=== PATIENT | female | born 1950 | race Caucasian/White ===

== ENCOUNTER 2021-01-10 14:58 | Emergency (ER) | payer MEDICARE, OTHER ==
--- NOTE | 2021-01-10 15:59 | EDM.PDOC ---
<Jesus Haque - Last Filed: 01/10/21 19:22> ED HPI GENERAL MEDICAL PROBLEM - General Chief Complaint: General Stated Complaint: POSS LOW POTASSIUM Time Seen by Provider: 01/10/21 15:27 - History of Present Illness INITIAL COMMENTS - FREE TEXT/NARRATIVE: 70-year-old female presents the emergency room after being sent here by her outpatient clinic as her potassium is quite low was 2.6. Patient has some fatigue and is tired but denies any heart problems or palpitations. She is however treated for hypertension hyperlipidemia. She is also treated for depression. She is on lisinopril hydrochlorothiazide for blood pressure and this was recently increased to a whole pill according to the patient she is on Lipitor for cholesterol. Patient is a breast cancer survivor she had a lumpectomy in the right. Is unclear to me what other treatment she had for this but it was 20 years ago. Patient has a unfortunate social circumstance she lost her 7 years ago and has been dating some folks that her suspicious for taking some of her financial resources. Early in the patient's care we had Mickie from social work come by and evaluate this patient and she spent about an hour and a half with the patient. And Mickie put some plans together that included following up with her psychologist weekly at least preferably twice a week the patient agrees to stop giving financial resources out. She is getting continue attending grief support group and the patient will return to the muslim community and visit the medical research associate for more social support. - Related Data Allergies Allergy/AdvReac Type Severity Reaction Status Date / Time haloperidol [From Haldol] Allergy Cannot Verified 01/10/21 15:21 Remember house dust mite Allergy Itching Verified 01/10/21 18:54 mold Allergy Itching Verified 01/10/21 18:53 zolpidem [From Ambien] Allergy Hallucinati Verified 01/10/21 18:53 ons Home Meds: Home Meds Amitriptyline [Elavil] 10 mg PO BEDTIME 01/11/21 [History] Aspirin [Halfprin] 81 mg PO DAILY 01/11/21 [History] Cyclobenzaprine [Flexeril] 5 mg PO TID PRN 01/11/21 [History] Doxycycline [Vibramycin] 100 mg PO BID 01/11/21 [History] Hydrochlorothiazide/Lisinopril [Lisinopril/HCTZ 10-12.5 MG] 10 - 12.5 mg PO DAILY 01/11/21 [History] Pantoprazole [ProTONIX] 40 mg PO DAILY 01/11/21 [History] Venlafaxine [Effexor XR] 150 mg PO DAILY 01/11/21 [History] atorvaSTATin [Lipitor] 40 mg PO BEDTIME 01/11/21 [History] buPROPion HCL [Bupropion Xl] 150 mg PO DAILY 01/11/21 [History] Past Medical History - Past Health History Medical/Surgical History: Denies Medical/Surgical History Social & Family History - Tobacco Use Tobacco Use Status *Q: Never Tobacco User - Recreational Drug Use Recreational Drug Use: No ED ROS GENERAL - Review of Systems Review Of Systems: See Below Constitutional: Reports: No Symptoms HEENT: Reports: No Symptoms Respiratory: Reports: No Symptoms Cardiovascular: Reports: No Symptoms Endocrine: Reports: No Symptoms GI/Abdominal: Reports: No Symptoms : Reports: No Symptoms Musculoskeletal: Reports: No Symptoms Skin: Reports: No Symptoms ED EXAM, GENERAL - Physical Exam Exam: See Below Exam Limited By: Other (Patient answers questions but she is a little slow to do this so.) General Appearance: Alert, No Apparent Distress Eye Exam: Bilateral Eye: EOMI, Normal Inspection, PERRL Ears: Normal External Exam, Normal Canal, Hearing Grossly Normal, Normal TMs Nose: Normal Inspection, Normal Mucosa, No Blood Throat/Mouth: Normal Inspection, Normal Lips, Normal Gums, Normal Oropharynx, Normal Voice, No Airway Compromise Head: Atraumatic, Normocephalic Neck: Normal Inspection, Supple, Non-Tender, Full Range of Motion Respiratory/Chest: No Respiratory Distress, Lungs Clear, Normal Breath Sounds Cardiovascular: Regular Rate, Rhythm, No Edema, No Murmur GI/Abdominal: Normal Bowel Sounds, Soft, Non-Tender Neurological: Alert, Other (Patient is slow to respond but does answer questions) Psychiatric: Flat Affect Course - Re-Assessments/Exams Free Text/Narrative Re-Assessment/Exam: 01/10/21 18:29 There are some complicating social factors with this patient and it was late for me getting started with her because social work did come by and review the situation and spent quite a long time with the patient. At this point we have started IV potassium I am waiting to give oral until I get confirmatory lab results. And then we will give 40 mEq p.o. then after she received 40 IV she should be okay to go home and finish oral supplementation as an outpatient we will check a repeat potassium during her fourth bag this will be approximately 9 PM this evening. At this point is change of shift further care and disposition per Dr. Da Silva Departure - Departure Disposition: Home, Self-Care 01 Clinical Impression: Hypokalemia - Discharge Information Referrals: Stephanie Leslie MD [Ordering Only Provider] - Forms: ED Department Discharge Additional Instructions: You were seen in the emergency room after being sent over from the clinic for low potassium. Work-up in the ER included some blood work and a urinalysis. The blood work confirmed your potassium level to be severely depressed at 2.3. Your urinalysis was unremarkable - you do not have a urinary tract infection. You were given multiple doses of oral and IV potassium replacement in the ER. We recommend that you contact the office of your PCP, Dr. Stephanie Leslie, today, in order to make an appointment to be seen this coming , 01/13/2021. At that time, your electrolytes should be rechecked. If any other problems, please do not hesitate to return to the ER. Sepsis Event Note (ED) - Evaluation Sepsis Screening Result: No Definite Risk <Ok Da Silva - Last Filed: 01/11/21 09:02> Course - Vital Signs Last Recorded V/S: Last Vital Signs Temp 36.9 C 01/11/21 07:46 Pulse 72 01/11/21 07:46 Resp 14 01/11/21 07:46 BP 152/82 H 01/11/21 07:46 Pulse Ox 94 L 01/11/21 07:46 - Orders/Labs/Meds Labs: Laboratory Tests 01/10/21 01/10/21 01/10/21 Range/Units 17:19 17:25 20:50 Sodium 137 (136-145) mEq/L Potassium 2.3 L* 2.4 L* (3.5-5.1) mEq/L Chloride 93 L (98-107) mEq/L Carbon Dioxide 33 H (21-32) mEq/L Anion Gap 13.3 (5-15) BUN 7 (7-18) mg/dL Creatinine 0.8 (0.55-1.02) mg/dL Est Cr Clr Drug Dosing 58.12 mL/min Estimated GFR (MDRD) > 60 (>60) mL/min BUN/Creatinine Ratio 8.8 L (14-18) Glucose 91 (70-99) mg/dL Calcium 9.3 (8.5-10.1) mg/dL Magnesium 1.8 (1.8-2.4) mg/dL Urine Color Yellow (Yellow) Urine Appearance Clear (Clear) Urine pH 7.0 (5.0-8.0) Ur Specific [place] 1.015 (1.005-1.030) Urine Protein Negative (Negative) Urine Glucose (UA) Negative (Negative) Urine Ketones Negative (Negative) Urine Occult Blood Trace-intact H (Negative) Urine Nitrite Negative (Negative) Urine Bilirubin Negative (Negative) Urine Urobilinogen 0.2 (0.2-1.0) Ur Leukocyte Esterase Trace H (Negative) Urine RBC 0-5 (0-5) /hpf Urine WBC 0-5 (0-5) /hpf Ur Squamous Epith Cells 5-10 H (0-5) /hpf Urine Bacteria Few (FEW) /hpf Urine Mucus Not seen (FEW) /hpf 01/11/21 Range/Units 03:34 Sodium 140 (136-145) mEq/L Potassium 3.1 L (3.5-5.1) mEq/L Chloride 101 (98-107) mEq/L Carbon Dioxide 31 (21-32) mEq/L Anion Gap 11.1 (5-15) BUN 6 L (7-18) mg/dL Creatinine 0.9 (0.55-1.02) mg/dL Est Cr Clr Drug Dosing 51.66 mL/min Estimated GFR (MDRD) > 60 (>60) mL/min BUN/Creatinine Ratio 6.7 L (14-18) Glucose 122 H (70-99) mg/dL Calcium 8.7 (8.5-10.1) mg/dL Magnesium (1.8-2.4) mg/dL Urine Color (Yellow) Urine Appearance (Clear) Urine pH (5.0-8.0) Ur Specific [place] (1.005-1.030) Urine Protein (Negative) Urine Glucose (UA) (Negative) Urine Ketones (Negative) Urine Occult Blood (Negative) Urine Nitrite (Negative) Urine Bilirubin (Negative) Urine Urobilinogen (0.2-1.0) Ur Leukocyte Esterase (Negative) Urine RBC (0-5) /hpf Urine WBC (0-5) /hpf Ur Squamous Epith Cells (0-5) /hpf Urine Bacteria (FEW) /hpf Urine Mucus (FEW) /hpf Meds: Medications Discontinued Medications Generic Name Dose Route Start Last Admin Trade Name Freq PRN Reason Stop Dose Admin Potassium Chloride 10 meq/ 100 mls @ 100 mls/hr 01/10/21 17:30 01/10/21 21:28 Premix IV 01/10/21 21:29 100 mls/hr Q1H [place] Administration Magnesium Oxide 800 mg 01/10/21 18:55 01/10/21 19:26 Magnesium Oxide 400 Mg Tab PO 01/10/21 18:56 800 mg ONETIME ONE Administration Potassium Chloride 40 meq 01/10/21 18:47 01/10/21 19:27 Potassium Chloride 20 Meq Tab.Er PO 01/10/21 18:48 40 meq ONETIME ONE Administration Potassium Chloride 40 meq 01/10/21 21:49 01/10/21 22:23 Potassium Chloride 20 Meq Tab.Er PO 01/10/21 21:50 40 meq ONETIME ONE Administration Potassium Chloride 40 meq 01/11/21 00:03 01/11/21 00:09 Potassium Chloride 20 Meq Tab.Er PO 01/11/21 00:04 40 meq ONETIME ONE Administration Potassium Chloride 40 meq 01/11/21 02:55 01/11/21 03:04 Potassium Chloride 20 Meq Tab.Er PO 01/11/21 02:56 40 meq ONETIME ONE Administration Potassium Chloride 40 meq 01/11/21 06:14 01/11/21 06:19 Potassium Chloride 20 Meq Tab.Er PO 01/11/21 06:15 40 meq ONETIME ONE Administration Potassium Chloride 40 meq 01/11/21 07:14 01/11/21 07:40 Potassium Chloride 20 Meq Tab.Er PO 01/11/21 07:15 40 meq ONETIME ONE Administration Potassium Chloride 40 meq 01/11/21 08:33 Potassium Chloride 20 Meq Tab.Er PO 01/11/21 08:34 ONETIME ONE - Re-Assessments/Exams Free Text/Narrative Re-Assessment/Exam: 01/11/21 02:56 The patient was given 40 mEq of IV KCl and oral Mag-Ox. She received her first dose of oral KCl 40 mEq around 19:30, her second around 21:50, her third around midnight, and she is now about to receive her fourth. A BMP will be drawn at 03:30, to check on her progress. 01/11/21 04:13 The patient's potassium is now up to 3.1, following a total of 200 mEq of oral and IV KCl. In order to get the patient's potassium level up to 3.5, she will likely need an additional 100 mEq of KCl. 01/11/21 08:56 At this time, the patient has been given a total of 7 doses of KCl 40 mEq. Her potassium should be about normal. Once she has finished breakfast, she will be discharged home. I would like her to make an appointment to follow-up with her PCP this coming , at which time her electrolytes should be rechecked. Departure - Departure Time of Disposition: 08:57 Condition: Good - Discharge Information *PRESCRIPTION DRUG MONITORING PROGRAM REVIEWED*: Not Applicable *COPY OF PRESCRIPTION DRUG MONITORING REPORT IN PATIENT GIUSEPPE: Not Applicable Sepsis Event Note (ED) - Focused Exam Vital Signs: Vital Signs Temp Pulse Resp BP Pulse Ox 01/11/21 07:46 36.9 C 72 14 152/82 H 94 L
[2021-01-10] MEDS: Potassium Chloride 10 MEQ in Premix Bag 1 BAG IV SCH ×4 (18:11→21:28)
[2021-01-10] MEDS ORDERED: Potassium Chloride 20 MEQ Tab.ER PO ONE ×2 (18:47→21:49)
[2021-01-10] MEDS ORDERED: Magnesium Oxide 400 MG Tab PO ONE (18:55)
[2021-01-11] MEDS ORDERED: Potassium Chloride 20 MEQ Tab.ER PO ONE ×5 (00:03→08:33)
== END 2021-01-11 09:40 | disposition home or self-care (01) ==
LOC: JD.ED 14:58
DX: E87.6 Hypokalemia (principal); Z88.8 Allergy status to other drugs, medicaments and biological substances; Z91.048 Other nonmedicinal substance allergy status; Z79.82 Long term (current) use of aspirin; Z79.899 Other long term (current) drug therapy
CPT/HCPCS: 36415; 80048; 81001; 83735; 84132; 96365; 96366; 99283; A9270; J3480